=== PATIENT | male | born 1955 | race Caucasian/White ===

== ENCOUNTER 2022-02-13 03:36 | Emergency (ER) | payer MEDICAID ==
[2022-02-13] MEDS ORDERED: Lidocaine 1% 5 ML VIAL INJECT ONE (04:00)
[2022-02-13] MEDS ORDERED: Bacitracin Oint 1 GM U/D Packet TOP ONE (04:00)
== END 2022-02-13 07:13 | disposition home or self-care (01) ==
LOC: JP.ED 03:36
DX: S01.81XA Laceration without foreign body of other part of head, initial encounter (principal); I10 Essential (primary) hypertension; F17.210 Nicotine dependence, cigarettes, uncomplicated; Z86.73 Personal history of transient ischemic attack (TIA), and cerebral infarction without residual deficits; W06.XXXA Fall from bed, initial encounter
CPT/HCPCS: 12014; 70450; 72125; 99282; 99283-25